=== PATIENT | male | born 1965 | race Hispanic/Latino ===

== ENCOUNTER 2018-10-24 19:17 | Emergency (ER) | payer OTHER ==
--- NOTE | 2018-10-24 20:16 | RAD ---
Exam: XR Hip Rt 2-3 View HISTORY: Right hip pain after tripping and falling. COMPARISON: None FINDINGS: There is a right total hip prosthesis noted in place without evidence of a hardware complication. No acute fracture, dislocation, or other acute osseous abnormality is identified. IMPRESSION: No acute osseous abnormality is identified.
== END 2018-10-24 20:29 ==
LOC: ERS 19:17
DX: M25.551 Pain in right hip (principal); I10 Essential (primary) hypertension; Z86.73 Personal history of transient ischemic attack (TIA), and cerebral infarction without residual deficits